=== PATIENT | male | born 1990 | race Caucasian/White ===

== ENCOUNTER 2017-08-23 15:43 | Emergency (ER) | payer SELFPAY ==
[2017-08-23 16:56] VITALS: BP 153/96
--- NOTE | 2017-08-23 17:30 | UC ---
Hip/Pelvis Pain - HPI Summary HPI Summary: RIGHT HIP PAIN X 5 DAYS INJURY TO RIGHT HIP AT WORK HE WAS PULLING/ PUSHING A HEAVY CART SEVER PAIN AND WEAKNESS WITH ANY MOVEMENT OF THE RIGHT HIP - History Of Current Complaint Chief Complaint: UCLowerExtremity Stated Complaint: RIGHT HIP/KNEE INJURY (WC) Time Seen by Provider: 08/23/17 16:38 Hx Obtained From: Patient Onset/Duration: Sudden Onset, Lasting Days - 5, Still Present Timing: Constant Severity Initially: Moderate Severity Currently: Severe Location: Discrete At: - RIGHT HIP Character Of Pain: Aching Aggravating Factor(s): Movement, Weight Bearing Alleviating Factor(s): Rest Associated Signs And Symptoms: Positive: Weakness. Negative: Swelling, Redness , Bruising, Fever, Dizziness, Syncope, Abdominal Pain, Knee Pain, Other - Allergies/Home Medications Allergies/Adverse Reactions: Allergies Allergy/AdvReac Type Severity Reaction Status Date / Time NARCOTIC Allergy Itching Uncoded 08/23/17 16:50 PMH/Surg Hx/FS Hx/Imm Hx Previously Healthy: Yes - Surgical History Surgical History: Yes Surgery Procedure, Year, and Place: APPY - Family History Known Family History: Negative: Diabetes - Social History Alcohol Use: None Substance Use Type: None Smoking Status (MU): Never Smoked Tobacco Type: Smokeless Tobacco Length of Time of Smoking/Using Tobacco: APPROX 1 YR When Did the Patient Quit Smoking/Using Tobacco: 05/2015 Review of Systems Constitutional: Negative Skin: Negative Eyes: Negative ENT: Negative Respiratory: Negative Cardiovascular: Negative Is Patient Immunocompromised?: No All Other Systems Reviewed And Are Negative: Yes Physical Exam Triage Information Reviewed: Yes Appearance: Well-Appearing, Well-Nourished, Pain Distress Vital Signs: Initial Vital Signs Temp 99.1 F 08/23/17 16:51 Pulse 90 08/23/17 16:51 Resp 16 08/23/17 16:51 BP 153/96 08/23/17 16:51 Pulse Ox 99 08/23/17 16:51 Eye Exam: Normal Eyes: Positive: Conjunctiva Clear ENT: Positive: Normal ENT inspection, Hearing grossly normal, Pharynx normal Neck: Positive: Supple, Nontender, No Lymphadenopathy Respiratory: Positive: Chest non-tender, Lungs clear, Normal breath sounds Cardiovascular Exam: Normal Cardiovascular: Positive: RRR, No Murmur, Pulses Normal Neurological: Positive: Other: - RIGHT HIP : NO SWELLING , NO ERYTHEMA, + DIFFUSE TENDERNESS, PAIN WITH FLEXION LIMITED STRENGTH WITH HIP FLEXION Hip Injury Course/Dx - Differential Dx/Diagnosis Provider Diagnoses: RIGHT HIP FLEXOR STRAIN Discharge - Discharge Plan Condition: Stable Disposition: HOME Prescriptions: Naproxen [Naproxen 500 mg] 500 mg PO BID #20 tab Patient Education Materials: Groin Strain (ED) Forms: *Work Release Referrals: No Primary Care Phys,NOPCP [Primary Care Provider] - 7 Days Additional Instructions: STRAIN OF RIGHT HIP FLEXOR MUSCLE
== END 2017-08-23 17:43 | disposition home or self-care (01) ==
LOC: UCCORT 15:43
DX: S76.911A Strain of unspecified muscles, fascia and tendons at thigh level, right thigh, initial encounter (principal); X50.0XXA Overexertion from strenuous movement or load, initial encounter; Y93.89 Activity, other specified; Y92.89 Other specified places as the place of occurrence of the external cause; Y99.0 Civilian activity done for income or pay; R53.1 Weakness; Z88.5 Allergy status to narcotic agent
CPT/HCPCS: 99212; G0463

== ENCOUNTER 2018-04-13 18:10 | Emergency (ER) | payer OTHER ==
[2018-04-13 18:31] VITALS: BP 134/72
[2018-04-13] MEDS ORDERED: Lidocaine 1%* 5 ML VIAL INJ ONE (18:38)
--- NOTE | 2018-04-13 19:18 | UC ---
Laceration HPI - HPI Summary HPI Summary: Pt presents with laceration right middle finger dorsal aspect, over DIP. Pt states he is UTD with tetanus. - History Of Current Complaint Chief Complaint: UCLaceration Stated Complaint: RIGHT MIDDLE FINGER LACERATION Time Seen by Provider: 04/13/18 18:35 Hx Obtained From: Patient Laceration Location: Finger - right middle Mechanism Of Injury: Sharp Trauma Onset/Duration: Sudden Onset Severity: Mild Pain Intensity: 2 Aggravating Factors: Position, Movement Related History: Dominant Hand Right - Allergies/Home Medications Allergies/Adverse Reactions: Allergies Allergy/AdvReac Type Severity Reaction Status Date / Time NARCOTIC Allergy Itching Uncoded 04/13/18 18:31 PMH/Surg Hx/FS Hx/Imm Hx Previously Healthy: Yes - Surgical History Surgical History: Yes Surgery Procedure, Year, and Place: APPY - Family History Known Family History: Negative: Diabetes - Social History Occupation: Employed Full-time Lives: With Family Alcohol Use: None Substance Use Type: None Smoking Status (MU): Never Smoked Tobacco Type: Smokeless Tobacco Length of Time of Smoking/Using Tobacco: APPROX 1 YR When Did the Patient Quit Smoking/Using Tobacco: 05/2015 Review of Systems Constitutional: Negative Skin: Other - laceration Eyes: Negative ENT: Negative Respiratory: Negative Cardiovascular: Negative Gastrointestinal: Negative Genitourinary: Negative Motor: Negative Neurovascular: Negative Musculoskeletal: Negative Neurological: Negative Psychological: Negative Is Patient Immunocompromised?: No All Other Systems Reviewed And Are Negative: Yes Physical Exam Triage Information Reviewed: Yes Appearance: Well-Appearing Vital Signs: Initial Vital Signs Temp 99.2 F 04/13/18 18:25 Pulse 93 04/13/18 18:25 Resp 16 04/13/18 18:25 BP 134/72 04/13/18 18:25 Pulse Ox 98 04/13/18 18:25 Vital Signs Reviewed: Yes Eye Exam: Normal ENT: Positive: Hearing grossly normal Neck exam: Normal Respiratory: Positive: No respiratory distress Musculoskeletal Exam: Normal Musculoskeletal: Positive: Strength Intact, ROM Intact Neurological Exam: Normal Psychological Exam: Normal Skin Exam: Other - laceration right middle finger Laceration Repair - Laceration Repair 1 Description: Linear Laceration Size After Repair: Length (cm) - 1.o, Width (mm) - 3, Depth (mm) - 2 Modified For Repair: No Anesthesia Used: 1.0% Lido Irrigation With Pressure Irrigation Device: Yes Closure Material: Sutures Closure Method: Single Layer - 3 sutures of 4-0 Suture Of: Skin Suture Type: Prolene Laceration Course/Dx - Differential Dx - Laceration/Wound Differental Diagnoses: Laceration Provider Diagnoses: laceration right middle finger. suture repair of laceration. 3 sutures placed of 4-0 Discharge - Sign-Out/Discharge Documenting (check all that apply): Discharge/Admit/Transfer - Discharge Plan Condition: Stable Disposition: HOME Patient Education Materials: Care For Your Stitches (ED), Laceration (ED) Referrals: [facility] [Outside] No Primary Care Phys,NOPCP [Primary Care Provider] - Additional Instructions: Please monitor for signs and symptoms of infection such as increased redness, tenderness, purulent discharge, and/or swelling. Please return in 8-10 days for suture removal. - Billing Disposition and Condition Condition: STABLE Disposition: HOME
== END 2018-04-13 19:31 | disposition home or self-care (01) ==
LOC: UCCORT 18:10
DX: Z88.5 Allergy status to narcotic agent (principal); S61.212A Laceration without foreign body of right middle finger without damage to nail, initial encounter; W45.8XXA Other foreign body or object entering through skin, initial encounter; Y93.9 Activity, unspecified; Y92.9 Unspecified place or not applicable
CPT/HCPCS: 12001; 99211; G0463

== ENCOUNTER 2018-10-24 11:55 | Emergency (ER) | payer OTHER ==
[2018-10-24 13:04] VITALS: BP 135/84
--- NOTE | 2018-10-24 13:44 | UC ---
UC General HPI - HPI Summary HPI Summary: pt was walking out of a basement when the door came down on the back of his head pushing his head forcefully down. c/o ongoing pain to back of neck. noted tingling to L 3rd/4th fingers immediately after but now now. no headache, nausea or current numb/tingling or weakness to arms legs. onset yesterday. took 400mg motrin this am with no relief. - History of Current Complaint Chief Complaint: UCTrauma Stated Complaint: WC-NECK INJURY Time Seen by Provider: 10/24/18 13:38 Hx Obtained From: Patient Pain Intensity: 2 Aggravating: movement Associated Signs & Symptoms: Negative: Back Pain, Fever, Nausea, Vomiting, Weakness - Allergy/Home Medications Allergies/Adverse Reactions: Allergies Allergy/AdvReac Type Severity Reaction Status Date / Time NARCOTIC Allergy Itching Uncoded 10/24/18 13:04 PMH/Surg Hx/FS Hx/Imm Hx Previously Healthy: Yes - Surgical History Surgical History: Yes Surgery Procedure, Year, and Place: APPY - Family History Known Family History: Negative: Diabetes - Social History Occupation: Employed Full-time Alcohol Use: None Substance Use Type: None Smoking Status (MU): Never Smoked Tobacco Type: Smokeless Tobacco Length of Time of Smoking/Using Tobacco: APPROX 1 YR When Did the Patient Quit Smoking/Using Tobacco: 05/2015 - Immunization History Vaccination Up to Date: Yes Review of Systems All Other Systems Reviewed And Are Negative: Yes Constitutional: Positive: Negative Skin: Positive: Negative Eyes: Positive: Negative ENT: Positive: Negative Respiratory: Positive: Negative Cardiovascular: Positive: Negative Gastrointestinal: Positive: Negative Genitourinary: Positive: Negative Motor: Positive: Negative Neurovascular: Positive: Negative Musculoskeletal: Positive: Negative Neurological: Positive: Negative Psychological: Positive: Negative Is Patient Immunocompromised?: No Physical Exam Triage Information Reviewed: Yes Appearance: Well-Appearing Vital Signs: Initial Vital Signs Temp 97.6 F 10/24/18 13:01 Pulse 66 10/24/18 13:01 Resp 14 10/24/18 13:01 BP 135/84 10/24/18 13:01 Pulse Ox 100 10/24/18 13:01 Vital Signs Reviewed: Yes Eyes: Positive: Conjunctiva Clear, Other: - PERRL, EOMI. ENT: Positive: Pharynx normal, TMs normal. Negative: Nasal congestion, Nasal drainage Neck: Positive: Supple, No Lymphadenopathy, Other: - Diffusely tender posterior neck/c-spine but no step off. Pt holds neck stiff. Respiratory: Positive: Lungs clear, Normal breath sounds Cardiovascular: Positive: RRR, No Murmur Abdomen Description: Positive: Nontender, No Organomegaly, Soft Bowel Sounds: Positive: Present Musculoskeletal: Positive: Other: - Head non tender with no swelling. thoracic and lumbar spine are non tender. 5/5 strength, 2+ reflexes and sensation in tact x4. Neurological: Positive: Other: - A&Ox3. CN 2-12 grossly intact. 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 No fracture of the cervical spine is otherwise noted. Course/Dx - Course Course Of Treatment: pt refusing WC to xray. CT no fx. - Diagnoses Provider Diagnosis: Cervical strain, acute Discharge - Sign-Out/Discharge Documenting (check all that apply): Patient Departure All imaging exams completed and their final reports reviewed: Yes - Discharge Plan Condition: Stable Disposition: HOME Prescriptions: Cyclobenzaprine TAB* [Flexeril 10 MG TAB*] 10 mg PO TID PRN #10 tab PRN Reason: Spasms - Neck Naproxen [Naprosyn 500 mg tab] 500 mg PO BID 5 Days #10 tablet Patient Education Materials: Cervical Strain (DC) Forms: *Work Release Referrals: Jos Roach MD [Medical Doctor] - 3 Days - Billing Disposition and Condition Condition: STABLE Disposition: Home
== END 2018-10-24 14:55 | disposition home or self-care (01) ==
LOC: UCCORT 11:55
DX: S16.1XXA Strain of muscle, fascia and tendon at neck level, initial encounter (principal); W20.8XXA Other cause of strike by thrown, projected or falling object, initial encounter; Y92.9 Unspecified place or not applicable; Z88.5 Allergy status to narcotic agent; Z87.891 Personal history of nicotine dependence
CPT/HCPCS: 72125; 99213; G0463